=== PATIENT | female | born 1985 | race Caucasian/White ===

== ENCOUNTER 2018-01-16 16:11 | Emergency (ER) | payer BC ==
[~2018-01-16] VITALS: Ht 175.3 cm; Wt 64.4 kg
[2018-01-16] MEDS ORDERED: KETOROLAC TROMETH 30 MG/ML 1ML VIAL IV ONE ×2 (19:15→20:00)
[2018-01-16] MEDS ORDERED: fentaNYL CITRATE 100 MCG/2 ML VL IV ONE ×2 (19:15→20:00)
[2018-01-16 22:42] VITALS: BP 123/65
== END 2018-01-16 23:09 | disposition home or self-care (01) ==
LOC: ER 16:14
DX: S52.601A Unspecified fracture of lower end of right ulna, initial encounter for closed fracture (principal); S52.101A Unspecified fracture of upper end of right radius, initial encounter for closed fracture; F12.10 Cannabis abuse, uncomplicated; V86.06XA Driver of dirt bike or motor/cross bike injured in traffic accident, initial encounter; Y93.89 Activity, other specified; Y99.8 Other external cause status; Y92.410 Unspecified street and highway as the place of occurrence of the external cause
CPT/HCPCS: 29125; 73090; 96374; 96375; 96376; 99284; J1885; J3010